=== PATIENT | female | born 1985 | race Caucasian/White ===

== ENCOUNTER 2022-07-20 19:10 | Inpatient (IN) | payer BC, OTHER ==
[~2022-07-20] VITALS: Ht 152.4 cm; Wt 57.2 kg
[2022-07-20] MEDS ORDERED: SODIUM CHLORIDE 0.9% 1,000 ML IV ONE (19:45)
[2022-07-20 21:37] LABS: HEMATOCRIT. 33.3 % (36.0-48.0); HEMOGLOBIN. 11.4 g/dL (12.0-16.0); MEAN CORPUSCULAR HEMOGLOBIN 31.3 pg (28.0-32.0); MEAN CORPUSCULAR VOLUME 91.8 fL (81.0-99.0); MEAN PLATELET VOLUME 7.9 fl (7.4-10.4); PLATELET 374 x1000/uL (130-400); RED BLOOD CELL COUNT 3.63 mill/uL (4.2-5.4); RED CELL DISTRIBUTION WIDTH 14.1 % (11.6-14.6)
[2022-07-20 21:40] LABS: CHLORIDE 107 mEq/L (98-107)
[2022-07-20] MEDS ORDERED: MORPHINE SULFATE 4 MG/ML CPJ (NOT FOR IM USE) IV ONE (22:15)
[2022-07-20] MEDS ORDERED: DIPHENHYDRAMINE 25MG CAPSULE PO ONE (23:00)
[2022-07-20] MEDS ORDERED: IOHEXOL-350 100 ML BOTTLE ONE (23:17)
[2022-07-21] MEDS ORDERED: POTASSIUM CHLORIDE 20MEQ TABLET SR PO ONE (00:15)
[2022-07-21] MEDS ORDERED: CEFTRIAXONE 1GM PREMIX 50 ML IV ONE (00:15)
[2022-07-21 00:54] LABS: CLARITY URINE CLEAR (CLEAR); COLOR URINE YELLOW (YELLOW); KETONES URINE NEGATIVE (NEGATIVE); LEUKOCYTE ESTERASE URINE 1+ (NEGATIVE); NITRITE URINE POSITIVE (NEGATIVE); OCCULT BLOOD URINE TRACE (NEGATIVE); PROTEIN URINE NEGATIVE (NEGATIVE); SPECIFIC GRAVITY URINE 1.053 (1.005-1.030); UROBILINOGEN URINE 0.2 E.U./dL (0.2-1.0)
[2022-07-21 01:50] LABS: PLATELET ESTIMATE NORMAL
[2022-07-21 03:05] VITALS: BP 97/49
[2022-07-21 03:16] LABS: HCG SCREEN NEGATIVE
[2022-07-21 03:40] VITALS: BP 97/49
[2022-07-21] MEDS ORDERED: METO-539 MT (04:04)
[2022-07-21] MEDS ORDERED: TELM40TA7 MT (04:04)
[2022-07-21] MEDS ORDERED: AMLO10TA80 MT (04:04)
[2022-07-21] MEDS ORDERED: HYDR25TA MT (04:04)
[2022-07-21] MEDS ORDERED: CEFTRIAXONE 1GM PREMIX 50 ML IV SCH (04:45)
[2022-07-21] MEDS ORDERED: ONDANSETRON HCL 4MG/2ML INJ IV PRN (04:45)
[2022-07-21] MEDS ORDERED: NALOXONE HCL 0.4MG/ML VIAL IV PRN (05:00)
[2022-07-21] MEDS: SODIUM CHLORIDE 0.9% 1,000 ML IV SCH ×3 (06:19→19:42)
[2022-07-21] MEDS: HYDROCODONE/ACETAMINOPHEN 10/325MG TABLET PO PRN ×2 (06:28→14:56)
[2022-07-21 08:00] VITALS: BP 95/52
[2022-07-21 10:24] LABS: BASOPHILS % 0.2 % (0.0-2.0); EOSINOPHILS % 0.2 % (0.0-5.0); HEMATOCRIT. 29.1 % (36.0-48.0); HEMOGLOBIN. 10.1 g/dL (12.0-16.0); LYMPHOCYTES % 14.5 % (20.0-50.0); MEAN CORPUSCULAR HEMOGLOBIN 31.8 pg (28.0-32.0); MEAN CORPUSCULAR VOLUME 91.4 fL (81.0-99.0); MEAN PLATELET VOLUME 7.6 fl (7.4-10.4); MONOCYTES % 6.4 % (2.0-8.0); NEUTROPHILS % 78.7 % (40.0-76.0); PLATELET 300 x1000/uL (130-400); RED BLOOD CELL COUNT 3.18 mill/uL (4.2-5.4); RED CELL DISTRIBUTION WIDTH 13.9 % (11.6-14.6)
[2022-07-21 11:03] LABS: CHLORIDE 111 mEq/L (98-107)
[2022-07-21 12:00] VITALS: BP 99/57
[2022-07-21 16:00] VITALS: BP 105/49
[2022-07-21 20:00] VITALS: BP 90/51
[2022-07-21] MEDS ORDERED: LEVO-65 MT (21:10)
[2022-07-21] MEDS ORDERED: POTASSIUM CHLORIDE 20MEQ TABLET SR PO NR (21:15)
[2022-07-21] MEDS ORDERED: KETOROLAC 30MG/ML VIAL IV PRN (21:15)
[2022-07-22] VITALS: BP_SYST 93; BP_SYST 94; BP_DIAS 48
[2022-07-22 04:00] VITALS: BP 95/40
[2022-07-22] MEDS: SODIUM CHLORIDE 0.9% 1,000 ML IV SCH (05:30)
[2022-07-22 07:03] LABS: BASOPHILS % 0.3 % (0.0-2.0); EOSINOPHILS % 2.9 % (0.0-5.0); HEMATOCRIT. 26.5 % (36.0-48.0); HEMOGLOBIN. 9.2 g/dL (12.0-16.0); LYMPHOCYTES % 27.3 % (20.0-50.0); MEAN CORPUSCULAR VOLUME 91.8 fL (81.0-99.0); MONOCYTES % 8.8 % (2.0-8.0); NEUTROPHILS % 60.7 % (40.0-76.0); PLATELET 263 x1000/uL (130-400); RED BLOOD CELL COUNT 2.89 mill/uL (4.2-5.4); RED CELL DISTRIBUTION WIDTH 14.6 % (11.6-14.6)
[2022-07-22 07:49] LABS: CHLORIDE 114 mEq/L (98-107)
[2022-07-22 08:00] VITALS: BP 124/49
[2022-07-22] MEDS ORDERED: CEFTRIAXONE 1,000 MG in DEXTROSE 5% WATER 50 ML IV SCH (09:00)
[2022-07-22 12:00] VITALS: BP 111/62
[2022-07-22 16:00] VITALS: BP 126/76
[2022-07-22 16:56] VITALS: BP 125/68
== END 2022-07-22 17:20 | disposition home or self-care (01) | DRG 872 ==
LOC: ER 19:10 → MICUSO 07-21 00:52 → 8WST 07-21 05:20
PROVIDERS: ADMIT Internal Medicine; ATTEND Internal Medicine
DX: A41.9 Sepsis, unspecified organism (principal); K92.0 Hematemesis; N39.0 Urinary tract infection, site not specified; I10 Essential (primary) hypertension; D64.9 Anemia, unspecified; E87.6 Hypokalemia; Z90.49 Acquired absence of other specified parts of digestive tract; Z88.8 Allergy status to other drugs, medicaments and biological substances; Z79.899 Other long term (current) drug therapy
CPT/HCPCS: 36415; 71275; 74174; 80048; 80053; 81003; 83880; 84703; 85025; 86850; 86900; 93306; 99291; J0696; J2270; J2405; J7030; J7060; Q0163; Q9967